=== PATIENT | male | born 1960 | race African-American/Black ===

== ENCOUNTER → 2016-11-11 | Outpatient (CLI) | payer OTHER ==
[~2016-11-11] MED LIST: ALDACTONE; ASPIRIN EC81 M1 PO; BAYER CHEWABLE81 MG PO; CARISOPRODOL 3350 MG PO; CELLCEPT 250 M250 MG PO; CELLCEPT200 MG/ML PO; CLORPACTIN WCS-92 GM IRRIG; DEPO-TESTO200 MG/1 M IM; DEX4 GLUCOSE1 EACH PO; FLEXERIL PO; FLOMAX PO; FLOMAX0.4 MG PO; GLUTOSE GEL 1515 G1 PO; IBUPROFEN 200200 M1 PO; KEFLEX500 MG PO; LANTUS100 UNIT/M SUBQ; LEVEMIR SUBQ; METOCLOPRAMIDE; NORVASC5 MG PO; NOVOLOG100 UNIT/1; NOVOLOG100 UNIT/1 SUBQ; NOVOLOG100 UNIT/M SUBQ; PROGRAF1 MG PO; PROTONIX PO; PROTONIX40 M1 PO; PROTONIX40 MG PO; REGLAN 5 MG TAB5 MG PO; TESTOSTERO200 MG/11; ZANTAC 150MG T150 MG PO; ZOFRAN ODT4 MG PO; [UNRECOGNIZED DRUG - OTHER] PO
--- NOTE | ~2016-11-11 | S ---
[facility] [place] [address] SURGICAL PATH RPT PROCEDURE Name: JOHN PAUL ODELL Room #: REG [facility] Norbert.#: [id number] Admission: 11/11/16 Date of : 64 Discharge: Report #: [id number] Path Case #: [id number] PATHOLOGY REPORT COLLECTION DATE: 11/11/2016 RECEIVED DATE: 11/12/2016 SUBMITTING PHYS: Dr. Baldev Feliciano OTHER PHYS: Dr. Avery Rodriguez SPECIMEN(S) RECEIVED: Kemars distal esophagus * * * * * * * * * * * * FINAL DIAGNOSIS: Glandular mucosa "biopsy distal esophagus": - Glandular mucosa with acute and chronic inflammation and goblet cell metaplasia consistent with Esquivel's metaplastic change. - There is no evidence of dysplasia or malignancy. (SHA:csd; d/t: 11/13/2016) PATHOLOGIST: Kei Hubbard M.D. REPORT ELECTRONICALLY SIGNED BY: Kei Hubbard M.D. DATE/TIME: 11/13/2016 10:55 * * * * * * * * * * * * GROSS PATHOLOGY: Received in formalin labeled "John Paul Odell and bx distal esophagus," are 2 segments of paul soft tissue measuring 0.6 x 0.2 x 0.2 cm in aggregate dimensions and measuring 0.2 and 0.4 cm in maximum dimension. The specimen is submitted entirely in cassette A1. (TTL; 11/12/2016) CLINICAL HISTORY: GERD, history of Esquivel's INITIAL CPT CODE(S): A; 73756 Professional services performed by [facility] at [facility] [address] [place] [address] Technical services performed by [facility] at [address] [place] [phone] [facility] [address] [place] [address] SURGICAL PATH RPT PROCEDURE Name: JOHN PAUL ODELL JR Room #: REG RUBENS Kraft#: [id number] Admission: 11/11/16 Date of : 64 Discharge: Report #: [id number] Path Case #: [id number] [address] PHONE: [phone] DIRECTOR: Parker Ferrera M.D. * * * END OF REPORT * * *
--- NOTE | ~2016-11-11 | P ---
[facility] [place] [address] PROCEDURE REPORT Name: JEREMY ODELL Room #: REG RUBENS Kraft#: [id number] Admission: 11/11/16 Attend Phys: Baldev [place] Discharge: Date of : 64 Report #: [id number] THIS REPORT FOR: //name// CC: Baldev Wyattlas Michael DATE OF SERVICE: 11/11/2016 PROCEDURE PERFORMED: Upper endoscopy with biopsies. HISTORY OF PRESENT ILLNESS: The patient is a 56-year-old male with a history of gastroesophageal reflux, intermittent heartburn symptoms despite taking Protonix on a daily basis. He has undergone a previous upper endoscopy by myself in 2013, small segment of Esquivel's was noted. LESLIE test at that time was negative for H. pylori. He denies any dysphagia. He has tried Protonix b.i.d. without much improvement and he states most of his symptoms are heartburn at night, is currently taking Protonix in the morning, he also has been taking Reglan in the past without any benefit and he discontinued this medication. DESCRIPTION OF PROCEDURE: The risks and benefits of the procedure were explained to the patient, those risks including but not limited to bleeding, perforation, the risk of sedation. He understood these risks and gave informed consent. Sedation was given using propofol and ketamine per anesthesia. Next, using a standard Paicen upper endoscope, the scope was placed in the patient's mouth and advanced under direct vision through the esophagus, stomach and into the second portion of the duodenum. The upper and mid esophagus were normal in appearance. In the distal esophagus, a segment of Esquivel's was noted extending above the GE junction approximately 1 cm. Biopsies were obtained. No evidence of esophagitis or stricture. Upon entering the stomach, was a small to medium sized hiatal hernia was noted. There was a small amount of liquid within the stomach. Overall, the gastric mucosa was normal. The pylorus was normal and patent. The duodenal bulb, first and second portion were all normal. The scope was then withdrawn and the procedure terminated. The patient tolerated the procedure well. IMPRESSION: 1. Short segment Esquivel's esophagus. 2. Hiatal hernia. 3. Otherwise, normal upper endoscopy. RECOMMENDATIONS: 1. Await biopsy results. 2. Would recommend switching Protonix to afternoon or evening dose to see if this improves the symptoms at night. He has already tried b.i.d. PPI therapy. He has already been on Reglan as well and Zantac in the past. Options are more limited at this point, we will discuss further with the patient, could consider [address] [address] PROCEDURE REPORT Name: JEREMY ODELL JR Room #: REG RUBENS Kraft#: [id number] Admission: 11/11/16 Attend Phys: Baldev [place] Discharge: Date of : 64 Report #: [id number] switching to a different PPI, may consider gastric emptying time study as well. If this is delayed then may consider erythromycin trial. Thank you for allowing me to participate in his care. <ELECTRONICALLY SIGNED> By: Baldev Feliciano MD 11/13/16 1358 1113 1201 Baldev Feliciano MD /nt
== END | disposition home or self-care (01) ==
LOC: GI 09:34
DX: K22.70 Barrett's esophagus without dysplasia (principal); K44.9 Diaphragmatic hernia without obstruction or gangrene
CPT/HCPCS: 62110; 62900

== ENCOUNTER 2017-07-04 13:21 | Emergency (ER) | payer OTHER ==
[~2017-07-04] VITALS: Ht 162.6 cm; Wt 72.6 kg
[2017-07-04] MEDS ORDERED: PROTONIX40 M1 PO (14:34)
[2017-07-04 15:11] LABS: ABSOLUTE NEUTROPHILS 2.1 thou/uL (1.4-8.2); BASOPHILS 0.5 % (0.0-2.0); EOSINOPHILS 3.9 % (0.0-3.0); HEMATOCRIT 38.2 % (42.0-52.0); HEMOGLOBIN 13.1 gm/dL (14.0-18.0); LYMPHOCYTES 25.5 % (24.0-44.0); MCH 30.4 pg (26.0-34.0); MCHC 34.3 g/dL (28.0-37.0); MCV 88.7 fL (80.0-100.0); MONOCYTES 8.8 % (1.0-8.0); PLATELET COUNT 194 thou/uL (150-400); POLYS 61.3 % (36.0-66.0); RDW 13.7 % (10.5-14.5); WBC 3.4 thou/uL (4.0-11.0)
[2017-07-04 15:13] LABS: MANUAL DIFF NO
[2017-07-04 15:18] LABS: CALCIUM 9.5 mg/dL (8.5-10.1); CREATININE 1.1 mg/dL (0.7-1.3); POTASSIUM 3.5 mmol/L (3.5-5.1)
[2017-07-04 15:23] LABS: ALBUMIN 3.8 g/dL (3.4-5.0); TOTAL BILIRUBIN 0.4 mg/dL (<0.1-1.0); TOTAL PROTEIN 7.3 g/dL (6.4-8.2)
[2017-07-04 16:17] LABS: URINE BILIRUBIN NEGATIVE (Negative); URINE BLOOD NEGATIVE (Negative); URINE COLOR YELLOW; URINE GLUCOSE-RANDOM* 2+ (Negative); URINE KETONES TRACE (Negative); URINE NITRITE NEGATIVE (Negative); URINE PROTEIN (DIPSTICK) TRACE (Negative); URINE UROBILINOGEN 0.2 E.U./dl (0.2-1.0)
[2017-07-04] MEDS ORDERED: PHENERGAN 25 MG25 M1 PO (16:54)
== END 2017-07-04 17:38 | disposition home or self-care (01) ==
LOC: ER 13:21
PROVIDERS: Physician Assistant
DX: R11.2 Nausea with vomiting, unspecified (principal); R19.7 Diarrhea, unspecified; I11.0 Hypertensive heart disease with heart failure; E11.9 Type 2 diabetes mellitus without complications; Z79.4 Long term (current) use of insulin

== ENCOUNTER → 2019-04-24 | Outpatient (CLI) | payer OTHER ==
[~2019-04-24] MED LIST changes: +PHENERGAN 25 MG25 M1 PO
== END ==
LOC: HYPER 06:16
DX: E11.622 Type 2 diabetes mellitus with other skin ulcer (principal); L89.513 Pressure ulcer of right ankle, stage 3; L97.311 Non-pressure chronic ulcer of right ankle limited to breakdown of skin; S90.424A Blister (nonthermal), right lesser toe(s), initial encounter; E11.610 Type 2 diabetes mellitus with diabetic neuropathic arthropathy; M12.871 Other specific arthropathies, not elsewhere classified, right ankle and foot; R60.0 Localized edema; E78.5 Hyperlipidemia, unspecified; F32.9 Major depressive disorder, single episode, unspecified; K21.9 Gastro-esophageal reflux disease without esophagitis; Z87.891 Personal history of nicotine dependence; Z94.0 Kidney transplant status; X58.XXXA Exposure to other specified factors, initial encounter; Y93.89 Activity, other specified; Y92.89 Other specified places as the place of occurrence of the external cause; Y99.8 Other external cause status

== ENCOUNTER → 2019-05-08 | Outpatient (CLI) | payer OTHER ==
[~2019-05-08] MED LIST changes: +AUGMENTIN 875-1 EACH PO
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
[2019-05-08 10:59] LABS: HEMATOCRIT 38.5 % (42.0-52.0); MCH 29.7 pg (26.0-34.0); MCHC 33.7 g/dL (28.0-37.0); MCV 88.3 fL (80.0-100.0); RBC 4.36 mil/uL (4.50-6.00); RDW 13.9 % (10.5-14.5); WBC 3.9 thou/uL (4.0-11.0)
[2019-05-08 11:23] LABS: ALBUMIN 3.6 g/dL (3.4-5.0); CALCIUM 9.6 mg/dL (8.5-10.1); CREATININE 0.9 mg/dL (0.7-1.3); TOTAL BILIRUBIN 0.6 mg/dL (<0.1-1.0); TOTAL PROTEIN 7.5 g/dL (6.4-8.2)
[2019-05-08 15:29] VITALS: BP 150/69
--- NOTE | 2019-05-08 15:46 | NUR ---
IN FOR CLINIC VISIT WITH DR. HAILEY DURON FOR RT FOOT DIABETIC WOUNDS. ADMISSION HISTORY AND ASSESSMENT COMPLETED. MEDICATIONS RECONCILED. DR. DURON VISITED. PATIENT CAME TO US FROM WOUND CLINIC. WOUNDS TO RT FOOT HEALING. NEW WOUND DISTAL TO RT LITTLE TOE SMALL/PINK. PATIENT DOING OWN DRESSING CHANGES DAILY AT HOME. LABS DRAWN AND FAXED TO DR. AQUINO AND DR. DURON. NEW ORDERS WRITTEN. PATIENT IS TO RETURN TO CLINIC NEXT WEDNESDAY TO F/U WITH DR. DURON AFTER HAVING MRI RT FOOT DONE THIS WEEK. ALSO PLACED CALL TO DR. AQUINO'S OFFICE TO GET ANT. DOPPLER RESULTS AND WOUND CULTURE RESULTS. FAXED ORDER TO SCHEDULING WHOM WILL CALL PATIENT TO SCHEDULE MRI. PLACED ORDER FOR PER DIEM REGISTERED NURSE TO SEE PT NEXT WEDNESDAY FOR DIABETIC TEACHING. DISMISSED IN STABLE CONDITION.
== END ==
LOC: OPONC 00:27
PROVIDERS: Specialist
DX: E11.622 Type 2 diabetes mellitus with other skin ulcer (principal); L89.513 Pressure ulcer of right ankle, stage 3; L97.311 Non-pressure chronic ulcer of right ankle limited to breakdown of skin; S90.821D Blister (nonthermal), right foot, subsequent encounter; E11.610 Type 2 diabetes mellitus with diabetic neuropathic arthropathy; E78.5 Hyperlipidemia, unspecified; M12.871 Other specific arthropathies, not elsewhere classified, right ankle and foot; R60.0 Localized edema; F32.9 Major depressive disorder, single episode, unspecified; Z87.891 Personal history of nicotine dependence; Z94.0 Kidney transplant status; X58.XXXD Exposure to other specified factors, subsequent encounter
CPT/HCPCS: 91024

== ENCOUNTER → 2019-05-08 | Outpatient (CLI) | payer OTHER | LOC: HYPER 06:29 | DX: E11.622 Type 2 diabetes mellitus with other skin ulcer (principal); L97.311 Non-pressure chronic ulcer of right ankle limited to breakdown of skin; L89.513 Pressure ulcer of right ankle, stage 3; S90.821D Blister (nonthermal), right foot, subsequent encounter; E11.610 Type 2 diabetes mellitus with diabetic neuropathic arthropathy; M12.871 Other specific arthropathies, not elsewhere classified, right ankle and foot; E78.5 Hyperlipidemia, unspecified; R60.0 Localized edema; F32.9 Major depressive disorder, single episode, unspecified; Z87.891 Personal history of nicotine dependence; Z94.0 Kidney transplant status; X58.XXXD Exposure to other specified factors, subsequent encounter ==

== ENCOUNTER → 2019-05-25 | Outpatient (CLI) | payer OTHER | LOC: NUC 09:30 | DX: S91.301D Unspecified open wound, right foot, subsequent encounter (principal); X58.XXXD Exposure to other specified factors, subsequent encounter ==

== ENCOUNTER → 2019-05-29 | Outpatient (CLI) | payer OTHER ==
[2019-05-29 12:07] VITALS: BP 179/77
--- NOTE | 2019-05-29 14:34 | NUR ---
HERE EARLIER TODAY FOR VISIT WITH DR. DURON. FIRST SAW DR. WOOD IN THE WOUND CARE CLINIC. PT STATES R FOOT WAS EVALUATED AND REDRESSED. UNABLE TO OBSERVE FOOT SINCE DRESSING IN PLACE AND SOCK ON. NO LABS ORDERED FOR TODAY. DR. DURON DID SEE PT AND REVIEWED ALL REPORTS FROM RECENT IMAGING STUDIES WITH HIM. HE ALSO SPOKE WITH DR. WOOD. PT WAS ENCOURAGED TO CONTINUE OFF-LOADING MUCH POSSIBLE. CALL PLACED AT THIS TIME TO [facility] TO REQUEST A WALKER FOR PT IN ADDITION TO HIS KNEE WALKER TO GIVE HIM MORE MOBILITY CHOICES. WILL FAX ORDER OVER AT THIS TIME. ORDER RECEIVED FOR PT TO RETURN TO SEE DR. DURON AGAIN IN 2 WEEKS POST HIS VISIT IN THE WOUND CARE CLINIC. DISMISSED IN STABLE CONDITION. USING KNEE WALKER TODAY.
--- NOTE | 2019-06-05 14:30 | HC ---
[facility] [place] [address] CONSULTATION Name: JEREMY ODELL [facility] [id number] Admission: 05/29/19 Attend Phys: Mario Diaz MD Discharge: Date of : 64 Report #: [id number] THIS REPORT FOR: //name// CC: Bob Diaz DATE OF SERVICE: 05/29/2019 FOLLOWUP CONSULTATION SUBJECTIVE: Outpatient clinic followup, Charcot foot wound. The patient has longstanding diabetes, immunosuppressed on CellCept, tacrolimus for kidney transplant. He has had a nonhealing wound to the lateral aspect of his right foot with longstanding Charcot changes. There are wounds over the lateral malleolus and the fifth metatarsal. Cultures had revealed methicillin-susceptible Staph aureus and group B Streptococcus along with mixed filipe. He has been on Augmentin without significant side effect. I was concerned about the possibility of underlying osteomyelitis. MRI scan was ordered, but insurance refused to pay for it, so I went ahead with a bone scan. Bone scan was performed on 05/25/2019, which showed increased blood flow throughout his foot and ankle. There was no localizing increased uptake to suggest osteomyelitis. X-ray of the foot showed diffuse soft tissue swelling with no evidence of active lytic bone lesion. He had chronic Charcot joint changes. Also had ultrasound of the right lower extremity arterial system. This was on 05/22/2019 showed common femoral artery, profunda femoris artery, superficial femoral artery and popliteal arteries were patent. There was antegrade flow throughout the anterior tibial artery and dorsalis pedis artery. Proximal portions of the posterior tibial artery was antegrade flow; however, the distal portion was retrograde flow at the ankle. This was concerning for more severe narrowing of the mid or distal posterior tibial artery. The patient has stayed off his foot as much as possible. He is having troubles ambulating around the house. He does have a knee walker, but he does not have a 4-point walker as for the spaces. Foot wound has improved with decreased size. There is minimal drainage. He was seen by the [facility] this morning and was redressed. He is having no further side effects from his medications. IMPRESSION: Diabetic neuropathy wounds to his right foot with poor glucose control. He does have evidence of peripheral vascular disease in the small vessels. There is no evidence to suggest osteomyelitis from my imaging studies performed so far. PLAN: To continue his current oral antibiotic therapy. Increase offloading and [address] [address] CONSULTATION Name: JEREMY ODELL Room #: REG RUBENS Toussaint.#: [id number] Admission: 05/29/19 Attend Phys: Mario Diaz MD Discharge: Date of : 64 Report #: [id number] continuing wound care. He will continue to work on diabetic management. We will reevaluate in 2 weeks. <ELECTRONICALLY SIGNED> By: Bob Gold MD 06/05/19 5902 1301 51 Bob Gold MD /tiara
== END ==
LOC: HYPER
DX: E11.622 Type 2 diabetes mellitus with other skin ulcer (principal); L89.513 Pressure ulcer of right ankle, stage 3; L97.311 Non-pressure chronic ulcer of right ankle limited to breakdown of skin; S90.821D Blister (nonthermal), right foot, subsequent encounter; L84 Corns and callosities; E11.610 Type 2 diabetes mellitus with diabetic neuropathic arthropathy; E78.5 Hyperlipidemia, unspecified; R60.0 Localized edema; M19.90 Unspecified osteoarthritis, unspecified site; F32.9 Major depressive disorder, single episode, unspecified; Z87.891 Personal history of nicotine dependence; Z94.0 Kidney transplant status; X58.XXXD Exposure to other specified factors, subsequent encounter
CPT/HCPCS: 91016

== ENCOUNTER → 2019-06-12 | Outpatient (CLI) | payer OTHER ==
--- NOTE | ~2019-06-12 | HC ---
[facility] [place] [address] CONSULTATION Name: JEREMY ODELL Room #: REG Louise Norbert.#: [id number] Admission: 06/12/19 Attend Phys: POLLY Smith Discharge: Date of : 64 Report #: [id number] THIS REPORT FOR: //name// CC: Bob Akers INFECTIOUS DISEASE OUTPATIENT FOLLOWUP HISTORY OF PRESENT ILLNESS: The patient returns in followup of his Charcot foot wound infection. Longstanding diabetes, renal transplantation on 2-drug immunosuppression, CellCept, tacrolimus. Nonhealing wound, lateral aspect of his right foot, both over the fifth metatarsal as well as the lateral malleolus. Longstanding Charcot foot. Cultures of the wound revealed methicillin-susceptible Staph aureus and group B Streptococcus along with mixed filipe. He remains on Augmentin without side effect. He has been offloading for the last several weeks. He is utilizing a knee scooter and a walker. Bone scan showed increased blood flow throughout the foot and ankle with no localizing changes to suggest osteomyelitis. X-ray of the foot showed no definite evidence of active lytic bone lesions. His vasculature was patent for the most part with reasonable flow to his foot. There was some concern over the mid to distal posterior tibial artery. His wound continues to show improvement. I was able to review the pictures obtained today at wound clear clinic. Significant improvement from 2 weeks ago. No new laboratory studies. IMPRESSION: 1. Diabetic neuropathy with Charcot foot and peripheral vascular disease. The combination of antibiotic therapy with Augmentin and offloading has resulted in significant improvement. He still needs better diabetic control. His blood glucose levels remain over 200 fasting. 2. Immunosuppression due to renal transplantation. 3. Diabetes. 4. Peripheral vascular disease. RECOMMENDATIONS: We will continue his current antibiotic program, offloading, diabetic management, and reevaluate in 2 weeks. By: 1357 2326 Bob Gold MD /nt
[2019-06-12 11:57] VITALS: BP 129/63
--- NOTE | 2019-06-12 14:27 | NUR ---
IN FOR CLINIC VISIT WITH DR. HAILEY DURON FOR RIGHT FOOT WOUNDS. DR. DURON VISITED. PLAN IS TO FOLLOWUP AGAIN IN 2 WEEKS. ALSO HAS AN APPT WITH CHARGE MASTER COORDINATOR ON JUN 27, AT 0900. DID NOT SEE RT FOOT WOUNDS PATIENT CAME TO CLINIC FROM WOUND CLINIC AND FOOT WAS DRESSED. PATIENT IS USING KNEE WALKER WHEN OUT, AND A REGULAR WALKER AT HOME. DR. DURON INSTRUCTED PATIENT TO USE HEEL TOUCH ON RT FOOT WHEN USING REGULAR WALKER AT HOME. TOOK PICTURE OF WOUNDS AND SHOWED THIS TO DR. DURON. WOUNDS ARE SMALLER AND HEALING. PLAN IS TO CONTINUE ORAL AUGMENTIN. DENIED PAIN, N/V, FEVER/CHILLS, DIARRHEA. DISMISSED IN STABLE CONDITION.
== END ==
LOC: HYPER 07:09
DX: E11.622 Type 2 diabetes mellitus with other skin ulcer (principal); L89.513 Pressure ulcer of right ankle, stage 3; L97.311 Non-pressure chronic ulcer of right ankle limited to breakdown of skin; L84 Corns and callosities; E11.610 Type 2 diabetes mellitus with diabetic neuropathic arthropathy; E78.5 Hyperlipidemia, unspecified; R60.0 Localized edema; F32.9 Major depressive disorder, single episode, unspecified; Z87.891 Personal history of nicotine dependence; Z94.0 Kidney transplant status
CPT/HCPCS: 91017

== ENCOUNTER → 2019-07-10 | Outpatient (CLI) | payer OTHER | LOC: HYPER 07-03 06:52 | DX: E11.622 Type 2 diabetes mellitus with other skin ulcer (principal); L89.513 Pressure ulcer of right ankle, stage 3; L97.311 Non-pressure chronic ulcer of right ankle limited to breakdown of skin; S90.822D Blister (nonthermal), left foot, subsequent encounter; E11.610 Type 2 diabetes mellitus with diabetic neuropathic arthropathy; E78.5 Hyperlipidemia, unspecified; L84 Corns and callosities; M12.871 Other specific arthropathies, not elsewhere classified, right ankle and foot; R60.0 Localized edema; F32.9 Major depressive disorder, single episode, unspecified; Z87.891 Personal history of nicotine dependence; Z94.0 Kidney transplant status; X58.XXXD Exposure to other specified factors, subsequent encounter ==

== ENCOUNTER → 2019-07-24 | Outpatient (CLI) | payer OTHER | LOC: HYPER 07:38 | DX: E11.621 Type 2 diabetes mellitus with foot ulcer (principal); L97.522 Non-pressure chronic ulcer of other part of left foot with fat layer exposed; E11.610 Type 2 diabetes mellitus with diabetic neuropathic arthropathy; M12.871 Other specific arthropathies, not elsewhere classified, right ankle and foot; L84 Corns and callosities; M19.90 Unspecified osteoarthritis, unspecified site; E78.5 Hyperlipidemia, unspecified; R60.0 Localized edema; F32.9 Major depressive disorder, single episode, unspecified; Z94.0 Kidney transplant status; Z87.891 Personal history of nicotine dependence ==

== ENCOUNTER → 2019-08-07 | Outpatient (CLI) | payer OTHER | LOC: HYPER 08:30 | DX: E11.621 Type 2 diabetes mellitus with foot ulcer (principal); L97.511 Non-pressure chronic ulcer of other part of right foot limited to breakdown of skin; E11.622 Type 2 diabetes mellitus with other skin ulcer; L97.311 Non-pressure chronic ulcer of right ankle limited to breakdown of skin; L84 Corns and callosities; E11.610 Type 2 diabetes mellitus with diabetic neuropathic arthropathy; M12.871 Other specific arthropathies, not elsewhere classified, right ankle and foot; E78.5 Hyperlipidemia, unspecified; Z87.891 Personal history of nicotine dependence; Z79.82 Long term (current) use of aspirin; Z94.0 Kidney transplant status ==

== ENCOUNTER → 2020-04-24 | Outpatient (CLI) | payer OTHER ==
[~2020-04-24] VITALS: Ht 165.1 cm; Wt 74.8 kg
[~2020-04-24] MED LIST changes: +CELLCEPT500 MG PO; +HUMALOG100 UNIT/1 SUBQ; +LEVEMIR FL100 UNIT/2 SUBQ; +PROGRAF 1 MG1 MG PO; +TRULICITY0.75 MG/0. SUBQ
--- NOTE | ~2020-04-24 | P ---
[facility] [place] [address] PROCEDURE REPORT Name: JEREMY ODELL Room #: REG [facility] Swapnil#: [id number] Admission: 04/24/20 Attend Phys: Baldev [place] Discharge: Date of : 64 Report #: [id number] THIS REPORT FOR: cc: Avery Rodriguez MD [facility] Avery Tomas MD [facility] Baldev Dalton MD ~ CC: Baldev Rodriguez MD DATE OF SERVICE: 04/24/2020 PROCEDURE PERFORMED: Upper endoscopy with biopsies. HISTORY OF PRESENT ILLNESS: The patient is a 59-year-old male with a history of gastroesophageal reflux disease, previously on Protonix with good control, was switched to Zantac at one time after renal transplant; however, was having worse symptoms of heartburn. He is now taking Protonix b.i.d. He is much improved; however, he does have breakthrough heartburn symptoms at times. He denies any dysphagia. He also has a history of Esquivel's esophagus, no dysplasia. Plan is for EGD and colonoscopy today. DESCRIPTION OF PROCEDURE: The risks and benefits of the procedure were explained to the patient; those risks including but not limited to bleeding, perforation and the risk of sedation. He understood these risks and gave informed consent. Sedation was given using propofol per anesthesia. Next, using a standard Olympus upper endoscope, the scope was placed in the patient's mouth and advanced under direct vision through the esophagus, stomach and into the second portion of the duodenum. The larynx was normal in appearance. The upper and mid esophagus was normal. In the distal esophagus, a small short segment of Esquivel's was noted approximately 2 cm. Biopsies were obtained. No evidence of esophagitis. No stricture was noted. Upon entering the stomach, a small hiatal hernia was noted. Overall, the gastric mucosa was normal. The pylorus was normal and patent. The duodenal bulb, first and second portion were all normal. The scope was then withdrawn and the procedure terminated. The patient tolerated the procedure well. IMPRESSION: 1. Short segment Esquivel's. 2. Small hiatal hernia. 3. Otherwise, normal upper endoscopy. RECOMMENDATIONS: 1. Await biopsy results. 2. Continue b.i.d. PPI therapy. [address] [address] PROCEDURE REPORT Name: JEREMY ODELL Room #: REG Louise Kraft#: [id number] Admission: 04/24/20 Attend Phys: Baldev [place] Discharge: Date of : 64 Report #: [id number] Thank you for allowing me to participate in his care. By: 1108 1349 Baldev Feliciano MD /nt
--- NOTE | ~2020-04-24 | P ---
[facility] [place] [address] PROCEDURE REPORT Name: JEREMY ODELL [facility] [id number] Admission: 04/24/20 Attend Phys: Baldev [place] Discharge: Date of : 64 Report #: [id number] THIS REPORT FOR: cc: Avery Rodriguez MD, FAAFP, FACEP, Douglas MD [facility] Baldev Dalton MD ~ CC: Baldev Rodriguez DATE OF SERVICE: 04/24/2020 PROCEDURE PERFORMED: Colonoscopy. HISTORY OF PRESENT ILLNESS: The patient is a 59-year-old male with a history of colon polyps, last colonoscopy 02/10/2014. No family history of colon cancer. DESCRIPTION OF PROCEDURE: The risks and benefits of the procedure were explained to the patient, those risks including but not limited to bleeding, perforation and the risk of sedation. He understood these risks and gave informed consent. Sedation was given using propofol per anesthesia. Next, a digital rectal exam was initially performed, which was normal. Next, using a standard Olympus colonoscope, the scope was placed in the patient's anus and advanced under direct vision to the cecum. The overall prep was good. The cecum and ileocecal valve were normal in appearance. Ascending, transverse, descending and sigmoid colon were all normal. The rectal mucosa was normal. On retroflexion, small nonbleeding internal hemorrhoids were noted, otherwise normal colonoscopy. The scope was then withdrawn and the procedure terminated. The patient tolerated the procedure well. IMPRESSION: 1. Small internal hemorrhoids. 2. Otherwise, normal colonoscopy. RECOMMENDATIONS: Repeat colonoscopy in 5 years if the patient has a family history of colon cancer; 10 years if no family history. Thank you for allowing me to participate in his care. By: 1110 1355 Baldev Feliciano MD /nt
--- NOTE | 2020-04-25 17:07 | PATH ---
[facility] [address] [place] [address] PATHOLOGY RPT PROCEDURE Name: JOHN PAUL ODELL Room #: REG ABIGAILLouise Swapnil#: [id number] Admission: 04/24/20 Date of : 64 Discharge: Report #: [id number] Path Case #: [id number] [facility] Accession Number: [id number] . 01 Material submitted: . esophagus - BIOPSY OF DISTAL ESOPHAGUS R/O DYSPLASIA. Modifiers: distal . 01 Clinical history: . History of Esquivel's, R/O dysplasia . 02 Diagnosis: Gastroesophageal mucosa, distal esophagus, endoscopic biopsy: - Focal specialized columnar epithelium (gastric cardia-type mucosa) with intestinal metaplasia, consistent with the provided history of Esquivel's mucosa. - Moderate chronic inflammation. - Focal squamous mucosa showing active esophagitis. - Negative for dysplasia. . (IUV:mml; 04/25/2020) QLM 04/25/2020 1606 Local . 02 Electronically signed: . Tamera Bains MD, Pathologist NPI- [id number] . 01 Gross description: . The specimen is received in formalin, labeled "John Paul Odell, biopsy of distal esophagus, R/O dysplasia". Received are four segments of pale paul soft tissue ranging in size from 0.2 to 0.3 cm in maximum dimensions. The specimen is submitted entirely in cassette A1. (CAA; 04/24/2020) QA/QA 04/24/2020 1550 Local . 02 Pathologist provided ICD-10: K22.70, K20.9 . 02 CPT . 722239 Specimen Comment: A courtesy copy of this report has been sent to [phone], [phone] Specimen Comment: [phone] Specimen Comment: Report sent to / DR DOOLEY Performed at: [address] [id number] MD Eliu Denise MD Phone: [phone] [facility] [place] [address] PATHOLOGY RPT PROCEDURE Name: JOHN PAUL ODELL Room #: REG CLLouise Kraft#: [id number] Admission: 04/24/20 Date of : 64 Discharge: Report #: [id number] Path Case #: [id number] Performed at: 02 [facility] [employer] [place], [place] [id number] MD Tamera Bains MD Phone: [phone]
== END | disposition home or self-care (01) ==
LOC: GI 09:07
PROVIDERS: ATTEND Specialist
DX: Z12.11 Encounter for screening for malignant neoplasm of colon (principal); Z86.010 Personal history of colon polyps; K64.8 Other hemorrhoids; K22.70 Barrett's esophagus without dysplasia; K20.9 Esophagitis, unspecified; K44.9 Diaphragmatic hernia without obstruction or gangrene; K21.9 Gastro-esophageal reflux disease without esophagitis; R12 Heartburn; I10 Essential (primary) hypertension; E11.9 Type 2 diabetes mellitus without complications; G62.9 Polyneuropathy, unspecified; E78.5 Hyperlipidemia, unspecified; M19.90 Unspecified osteoarthritis, unspecified site; Z90.49 Acquired absence of other specified parts of digestive tract; Z98.890 Other specified postprocedural states; Z11.59 Encounter for screening for other viral diseases; Z94.0 Kidney transplant status; Z79.899 Other long term (current) drug therapy; Z79.4 Long term (current) use of insulin
CPT/HCPCS: 62110; 62900

== ENCOUNTER → 2020-09-04 | Outpatient (CLI) | payer OTHER | LOC: SJCVCIMAG 10:31 | PROVIDERS: ATTEND Emergency Medicine | DX: I70.201 Unspecified atherosclerosis of native arteries of extremities, right leg (principal); L97.319 Non-pressure chronic ulcer of right ankle with unspecified severity ==

== ENCOUNTER → 2020-09-04 | Outpatient (CLI) | payer OTHER | LOC: HYPER 08:40 | PROVIDERS: ATTEND Emergency Medicine | DX: E11.622 Type 2 diabetes mellitus with other skin ulcer (principal); L89.513 Pressure ulcer of right ankle, stage 3; L97.312 Non-pressure chronic ulcer of right ankle with fat layer exposed; E11.621 Type 2 diabetes mellitus with foot ulcer; L89.893 Pressure ulcer of other site, stage 3; L97.512 Non-pressure chronic ulcer of other part of right foot with fat layer exposed; R60.0 Localized edema; E11.610 Type 2 diabetes mellitus with diabetic neuropathic arthropathy; E78.5 Hyperlipidemia, unspecified; K21.9 Gastro-esophageal reflux disease without esophagitis; M12.871 Other specific arthropathies, not elsewhere classified, right ankle and foot; F32.9 Major depressive disorder, single episode, unspecified; Z94.0 Kidney transplant status; Z87.891 Personal history of nicotine dependence ==

== ENCOUNTER → 2020-09-09 | Outpatient (CLI) | payer OTHER ==
[~2020-09-09] VITALS: Ht 165.1 cm; Wt 74.8 kg
[~2020-09-09] MED LIST changes: +PROGRAF0.5 MG PO
[2020-09-09 07:17] VITALS: BP 147/55
== END | disposition home or self-care (01) ==
LOC: CATH 06:47
PROVIDERS: ATTEND Nuclear Medicine Nuclear Cardiology
DX: I70.238 Atherosclerosis of native arteries of right leg with ulceration of other part of lower leg (principal); L97.919 Non-pressure chronic ulcer of unspecified part of right lower leg with unspecified severity; I10 Essential (primary) hypertension; I70.1 Atherosclerosis of renal artery; E11.40 Type 2 diabetes mellitus with diabetic neuropathy, unspecified; M19.90 Unspecified osteoarthritis, unspecified site; K21.9 Gastro-esophageal reflux disease without esophagitis; I42.9 Cardiomyopathy, unspecified; Z98.890 Other specified postprocedural states; Z79.899 Other long term (current) drug therapy; Z94.0 Kidney transplant status; Z79.4 Long term (current) use of insulin; Z87.891 Personal history of nicotine dependence; Z90.49 Acquired absence of other specified parts of digestive tract

== ENCOUNTER → 2020-09-23 | Outpatient (CLI) | payer OTHER | LOC: HYPER 13:13 | PROVIDERS: ATTEND Emergency Medicine | DX: E11.622 Type 2 diabetes mellitus with other skin ulcer (principal); L89.513 Pressure ulcer of right ankle, stage 3; L97.311 Non-pressure chronic ulcer of right ankle limited to breakdown of skin; E11.621 Type 2 diabetes mellitus with foot ulcer; L89.890 Pressure ulcer of other site, unstageable; L97.511 Non-pressure chronic ulcer of other part of right foot limited to breakdown of skin; R60.0 Localized edema; E11.610 Type 2 diabetes mellitus with diabetic neuropathic arthropathy; E78.5 Hyperlipidemia, unspecified; K21.9 Gastro-esophageal reflux disease without esophagitis; M12.871 Other specific arthropathies, not elsewhere classified, right ankle and foot; F32.9 Major depressive disorder, single episode, unspecified; Z94.0 Kidney transplant status; Z87.891 Personal history of nicotine dependence ==

== ENCOUNTER → 2020-10-14 | Outpatient (CLI) | payer OTHER | LOC: LAB 09:41 | PROVIDERS: ATTEND Emergency Medicine | DX: U07.1 COVID-19 (principal) ==

== ENCOUNTER 2020-11-23 14:09 | Inpatient (IN) | payer OTHER ==
[~2020-11-23] VITALS: Ht 165.1 cm; Wt 73.3 kg
[2020-11-23 14:13] VITALS: BP 167/72
[2020-11-23] MEDS ORDERED: CLOPIDOGREL75 MG PO (14:57)
[2020-11-23] MEDS ORDERED: PRASUGREL HCL10 MG PO (14:57)
[2020-11-23 15:07] LABS: ABSOLUTE NEUTROPHILS 8.9 thou/uL (1.4-8.2); BASOPHILS 0.1 % (0.0-2.0); EOSINOPHILS 0.1 % (0.0-3.0); HEMATOCRIT 33.4 % (42.0-52.0); HEMOGLOBIN 11.3 gm/dL (14.0-18.0); LYMPHOCYTES 9.3 % (24.0-44.0); MCH 29.9 pg (26.0-34.0); MCHC 33.7 g/dL (28.0-37.0); MCV 88.9 fL (80.0-100.0); MONOCYTES 6.1 % (1.0-8.0); PLATELET COUNT 255 thou/uL (150-400); POLYS 84.4 % (36.0-66.0); RBC 3.76 mil/uL (4.50-6.00); RDW 14.3 % (10.5-14.5); WBC 10.6 thou/uL (4.0-11.0)
[2020-11-23 15:22] LABS: MAGNESIUM 1.5 mg/dL (1.8-2.4); TROPONIN-I <0.06 ng/mL (<0.06)
[2020-11-23 15:27] LABS: CALCIUM 9.5 mg/dL (8.5-10.1); CREATININE 1.3 mg/dL (0.7-1.3); POTASSIUM 4.2 mmol/L (3.5-5.1)
[2020-11-23 15:32] LABS: ALBUMIN 3.1 g/dL (3.4-5.0); TOTAL BILIRUBIN 0.8 mg/dL (0.2-1.0); TOTAL PROTEIN 7.6 g/dL (6.4-8.2)
--- NOTE | 2020-11-23 23:58 | NUR ---
SPOKE WITH PROVIDER RE PT REQUEST FOR BREATHING TREATMENT, ORDER PLACED
[2020-11-24 04:17] VITALS: BP 132/63
[2020-11-24 04:42] VITALS: BP 136/72
[2020-11-24 05:35] VITALS: BP 164/54
--- NOTE | 2020-11-24 06:48 | NUR ---
PT ARRIVED TO UNIT AT 0530 VIA ER ON CART. PT IS A/0X4 AND IS X1 ASSIST. PT USES CANE AT HOME AND RIGHT LOWER LEG IS SWOLLEN WITH SOFT TISSUE WOUNDS TO RIGHT ANKLE. ADMISSION COMPLETED, CARE PLAN IN PLACE, AND CONSULTS TO RENAL HAVE BEEN CALLED. PT WAS POSITIVE FOR COVID 10/13, SWABBED AGAIN THE IN ER AND PCR POSITIVE STILL. FLU SWAB WAS POSITIVE FOR BOTH A/B. POC WITH IVF AND ANTIBIOTICS.
[2020-11-24 07:35] VITALS: BP 139/65
[2020-11-24 10:14] LABS: URINE BLOOD NEGATIVE (Negative); URINE CLARITY CLEAR; URINE COLOR YELLOW; URINE GLUCOSE-RANDOM* TRACE (Negative); URINE KETONES 1+ (Negative); URINE LEUKOCYTES-REFLEX NEGATIVE (Negative); URINE NITRITE-REFLEX NEGATIVE (Negative); URINE PROTEIN (DIPSTICK) 1+ (Negative); URINE SPECIFIC GRAVITY 1.025 (1.005-1.035)
[2020-11-24 10:16] LABS: ICTOTEST (BILI CONFIRMATORY) Negative (Negative); URINE BILIRUBIN NEGATIVE (Negative)
[2020-11-24 10:53] LABS: CASTS None Seen /LPF (None Seen); MUCUS 0-3 Light strn/LPF (None Seen); SQUAMOUS 0-3 Few /LPF (0-3)
[2020-11-24 10:54] LABS: BACTERIA-REFLEX 1-9 Few /HPF (None Seen); CRYSTALS None Seen /LPF (None Seen); URINE RBC None Seen /HPF (0-2); URINE WBC-REFLEX 0-5 Rare /HPF (0-5)
[2020-11-24 16:25] VITALS: BP 114/53
--- NOTE | 2020-11-24 17:27 | NUR ---
PATIENT HAS RESTED IN ROOM THE THROUGH THE DAY. HE DID HAVE A FEVER AGAIN TODAY AND PRN TYLENOL ADMINISTERD. IT WAS EFFECTIVE TO FEVER OF 101.8. HE IS WOUNDS TO RIGHT INNER AND OUTER MALEOLUS NOTED. NO DRAINAAGE. JUST SWELLING.
[2020-11-24 19:38] VITALS: BP 147/67
--- NOTE | 2020-11-25 03:44 | NUR ---
CARE ASSUMED 1900. PT ALERT AND ORIENTED 4. REPORTS HEADACHE, AND WAS NOTED TO HAVE A FEVER OF 102. TYLENOL X 1 GIVEN. FEVER RESOLVED. SR, ST ON THE MONITOR. DENIES CHEST PAIN. C/O NAUSEA , ALLEVIATED BY ZOFRAN. NO OTHER DISTRESS REPORTED. WILL CONTINUE WITH POC.
[2020-11-25 04:09] VITALS: BP 156/76
--- NOTE | 2020-11-25 07:43 | EKG ---
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: JCHAINIMA : 1960 Requested By: Dustin Kearney Order Number: [id number] MD: Robbin Wadsworth Measurements Intervals [place] Rate: 125 P: 70 TN: 119 QRS: 79 QRSD: 91 T: 45 QT: 311 QTc: 449 Interpretive Statements Sinus tachycardia Ventricular premature complex Aberrant complex Probable left atrial enlargement Probable left ventricular hypertrophy Compared to ECG 07/06/2014 21:24:43 Ventricular premature complex(es) now present Aberrant conduction of supraventricular beat(s) now present Sinus rhythm no longer present Electronically Signed On 11-25-2020 7:42:56 UNDERGRADUATE INTERN by Robbin Wadsworth [email or web address] <ELECTRONICALLY SIGNED> By: Robbin Wadsworth MD, FACC 11/25/20 0742 1429 1429 Robbin Wadsworth MD, [facility] /EPI
--- NOTE | 2020-11-25 07:44 | HC ---
[facility] [place] [address] CONSULTATION Name: JEREMY ODELL Room #: 354-P [facility] IN .R.#: [id number] Admission: 11/23/20 Attend Phys: Laila Batista MD Discharge: Date of : 64 Report #: [id number] THIS REPORT FOR: cc: Avery Rodriguez MD [facility] Avery Rodriguez MD [facility] Cyrus Heard MD ~ DATE OF SERVICE: 11/24/2020 INFECTIOUS DISEASE CONSULTATION ATTENDING PHYSICIAN: Dr. Laila Batista REASON FOR EVALUATION: Influenza complicated by streptococcal septicemia. HISTORY OF PRESENT ILLNESS: Chart reviewed, patient examined. This is a 60-year-old with extensive medical history, has diabetes mellitus, previously complicated by end-stage renal disease, on dialysis. He had received renal transplant in 2011. He has been on combination immunosuppressive therapy since that time generally without complication, who actually had experienced a positive COVID testing about a month ago. He presented with anterior type chest discomfort and pressure. He was evaluated and found to have a positive influenza antigen tests for both A and B. The patient's chest x-ray is without acute abnormalities. Lactic acid is 1.4. ProBNP of 559. Rapid Strep was negative. COVID antigen was negative, although the PCR was positive. Now blood cultures 2 out 2 with growth of Streptococcus species. He was noted to be febrile on admission to 103.3, repeat this morning is now afebrile. He denies significant chest discomfort at this point. He is maintained on room air. He was empirically started on combination therapy with cefazolin and oseltamivir. ALLERGIES: None known. MEDICATIONS: Include prasugrel, amlodipine, aspirin, cefazolin, albuterol, tacrolimus, mycophenolate, pantoprazole. PAST MEDICAL HISTORY: As described above, history of diabetes mellitus, end-stage renal disease, now renal transplant 2012 situated in the right lower quadrant, hypertension, peripheral neuropathy, has had cardiomyopathy, Charcot's arthropathy involving the distal lower extremity. SOCIAL HISTORY: Former smoker. No ethanol. No illicit drug use. FAMILY HISTORY: Noncontributory. REVIEW OF SYSTEMS: Otherwise, unremarkable 10-point review of systems. [facility] [address] [place] [address] CONSULTATION Name: JEREMY ODELL Room #: 354-P [facility] IN [facility]#: [id number] Admission: 11/23/20 Attend Phys: Laila Batista MD Discharge: Date of : 64 Report #: [id number] PHYSICAL EXAMINATION: GENERAL: He is alert, pleasant, and cooperative. He is sitting in a chair, in moderate distress, appears reasonably well nourished. VITAL SIGNS: Temperature 98.5, pulse 105, respirations 16, blood pressure 164/54. SKIN: Warm, dry, no rashes. HEENT: Otherwise, unremarkable. Extraocular muscles intact. NECK: Supple. LUNGS: Diminished breath sounds, otherwise clear. HEART: Regular. Borderline tachycardic. I do not appreciate a murmur. ABDOMEN: Soft, nontender. EXTREMITIES: No cyanosis. GENITOURINARY AND RECTAL: Deferred. LABORATORY DATA: Blood cultures noted to have group B strep and this has confirmed Electrolytes: Sodium 134, potassium 4.2, chloride 97, bicarbonate is 27, anion gap of 10, BUN and creatinine 18 and 1.3, glucose of 168. Albumin of 3.1. CBC: White count 10.6, H and H 11.3 and 33.4, platelets of 255. ASSESSMENT: Group B strep septicemia of unclear etiology. There is question of skin versus genitourinary. We will check urinalysis. The patient will continue therapy with cefazolin. Continue treatment for influenza as well, although this seems less likely to me given both antigens are positive and the lack of signs and symptoms, although he was febrile when he came in and seems to have resolved rather quickly. Secondly diabetes mellitus. Thirdly, renal transplantation, we will continue immunosuppressive therapy at this point, no evidence of complications directly related to that. <ELECTRONICALLY SIGNED> By: Cyrus Heard MD 11/25/20 0744 0945 1139 Cyurs Heard MD /nt
[2020-11-25 08:04] VITALS: BP 144/59
--- NOTE | 2020-11-25 08:29 | EKG ---
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 : 1960 Requested By: Magnolia Mims Order Number: [id number] MD: Jeferson Davis Measurements Intervals [place] Rate: 97 P: 64 NC: 105 QRS: 57 QRSD: 93 T: 28 QT: 337 QTc: 428 Interpretive Statements Sinus rhythm Short NC interval Probable left atrial enlargement Borderline ST elevation, anterolateral leads Compared to ECG 11/23/2020 14:29:48 Electronically Signed On 11-25-2020 8:28:53 GROCERY CADDY by Jeferson Davis [email or web address] <ELECTRONICALLY SIGNED> By: Jeferson Davis MD 11/25/20827 9 9 Jeferson Davis MD /AMANDA
[2020-11-25 09:07] LABS: ALBUMIN 2.1 g/dL (3.4-5.0); CALCIUM 8.4 mg/dL (8.5-10.1); CREATININE 1.3 mg/dL (0.7-1.3); PHOSPHORUS 2.6 mg/dL (2.6-4.7); POTASSIUM 4.1 mmol/L (3.5-5.1)
[2020-11-25 10:05] LABS: ABSOLUTE NEUTROPHILS 8.5 thou/uL (1.4-8.2); BASOPHILS 0.3 % (0.0-2.0); EOSINOPHILS 0.1 % (0.0-3.0); HEMATOCRIT 29.3 % (42.0-52.0); HEMOGLOBIN 9.7 gm/dL (14.0-18.0); LYMPHOCYTES 7.6 % (24.0-44.0); MCH 29.5 pg (26.0-34.0); MCHC 33.1 g/dL (28.0-37.0); MCV 89.1 fL (80.0-100.0); MONOCYTES 7.1 % (1.0-8.0); PLATELET COUNT 229 thou/uL (150-400); POLYS 84.9 % (36.0-66.0); RBC 3.29 mil/uL (4.50-6.00); RDW 14.7 % (10.5-14.5)
--- NOTE | 2020-11-25 11:01 | NUR ---
INITIAL ASSESSMENT: YIMI reviewed chart and spoke with nursing and attending physician. Pt was admitted from home due to fever and Influenza. Pt placed in Enhanced Isolation. Pt had positive COVID test on 11/23 and had initially tested positive on 10/14/2020. Pt is febrile and not requiring O2. Pt is on IV abx. Pt has tested positive for Influenza A & B. YIMI spoke with pt via phone. Introduced role of SW. Pt is alert/orientated x 4. Pt reports he lives at home with his . Prior to admission, pt was independent with ADLs. Pt with hx of charcot foot and states that he has a brace/boot to use with ambulation. Pt states that his balance is sometimed impacted when he wears the brace/boot. No hx of HH services or post-acute placement. Pt's PCP is Dr. Edmundo Rodriguez. YIMI discussed with attending physician. Therapy to be ordered to evaluate pt for discharge needs. Plan is for pt to discharge home when medically stable. YIMI is following to assist as needed with discharge planning.
--- NOTE | 2020-11-25 11:10 | HC ---
[facility] [place] [address] CONSULTATION Name: JEREMY ODELL Room #: 354-P [facility] IN .R.#: [id number] Admission: 11/23/20 Attend Phys: Laila Batista MD Discharge: Date of : 64 Report #: [id number] THIS REPORT FOR: cc: Avery Rodriguez MD [facility] Avery Tomas MD [facility] Fer Chung MD ~ DATE OF SERVICE: 11/24/2020 CARDIOLOGY CONSULTATION INDICATION: Chest pain. HISTORY OF PRESENT ILLNESS: This is a 60-year-old gentleman with a history of renal transplant, PAD status post right SFA stenting, diabetes mellitus, hypertension, cardiomyopathy, recent COVID infection, presenting with chest pain, fever and chills. He was found to be positive for flu A and B. Blood cultures are pending. He describes intermittent substernal chest pain for the past 3 days. It may be related to deep inspiration. It comes and goes, not necessarily related to physical exertion. There is no relation with deep stretching of the arms or palpation of the area. His ambulation is limited due to a Charcot foot, undergoing treatment by wound care. He had a recent SFA stent in 08/2020. No prior cardiac disease. PAST MEDICAL HISTORY: Renal transplant. Peripheral vascular disease with stent. Diabetes mellitus, hypertension, hypercholesterolemia, Charcot joint, recent COVID infection 3-4 weeks ago. MEDICATIONS: Include Effient 10 mg daily, Prograf, Protonix, aspirin, amlodipine 5 mg, insulin. ALLERGIES: None. SOCIAL HISTORY: Negative for tobacco use. FAMILY HISTORY: Noncontributory. REVIEW OF SYSTEMS: A full 10-point review of systems performed. Only the pertinent positives and negatives are described in the HPI. PHYSICAL EXAMINATION: VITAL SIGNS: Blood pressure is 130/60, heart rate is 110 beats per minute. GENERAL APPEARANCE: This is a well-developed, well-nourished male in no acute distress. HEENT: Normocephalic, atraumatic. Oral mucosa moist. NECK: Supple. [facility] [address] [place] [address] CONSULTATION Name: JOSE RJEREMY J Room #: 354-P [facility] IN M.R.#: [id number] Admission: 11/23/20 Attend Phys: Laila Batista MD Discharge: Date of : 64 Report #: [id number] LUNGS: Clear to auscultation. CARDIAC: Regular rate and rhythm, S1, S2 positive. ABDOMEN: Soft, nontender. EXTREMITIES: No cyanosis, edema of the right ankle. ECG reveals sinus tachycardia, LVH. LABORATORY VALUES: White count is 10.6. Troponin is negative x 2. ASSESSMENT AND PLAN: 1. Chest pain syndrome, the differential diagnosis includes ischemia, musculoskeletal, pleuritis, GERD. Two sets of troponin levels are negative. His symptoms do not appear to be ischemic related at this time. We will need an ischemic evaluation in view of his risk factors. It can be performed after his infections have been diagnosed and treated. 2. Peripheral vascular disease, status post stent placement, continue with aspirin and Effient. 3. Flu A and B, as per ID. 4. Diabetes mellitus, continue with regimen and check Accu-Cheks. 5. Hypertension, continue medications. 6. Renal transplant, as per Nephrology. <ELECTRONICALLY SIGNED> By: Fer Chung MD 11/25/20 1110 1459 [id number] Fer Chung MD /nt
--- NOTE | 2020-11-25 14:36 | NUR ---
ECHO IN PT ROOM. PT IV BANDAGE NEEDS CHANGING. HOLDING CEFAZOLIN UNTIL IV SITE CLEANED POST ECHO PERFORMED.
--- NOTE | 2020-11-25 15:04 | NUR ---
Request order to change diet to carb control and discontinue renal restriction. Pt renal function has been stable since 2012 with transplant and renal restriction not necessary.
[2020-11-25 15:47] VITALS: BP 147/52
--- NOTE | 2020-11-25 16:22 | 2DMMODE ---
[facility] [place] [address] 2 D/M-MODE ECHOCARDIOGRAM Name: JEREMY ODLEL Room #: 354-P ADM IN M.R.#: [id number] Admission: 11/23/20 Attend Phys: Laila Batista MD Discharge: Date of : 64 Report #: [id number] THIS REPORT FOR: cc: Avery Rodriguez MD, FAAFP, FACEP, Douglas MD FAA FACERaul Gary MD [facility] ~ APPROVED REPORT Study performed: 11/25/2020 14:29:23 EXAM: Comprehensive 2D, Doppler, and color-flow Echocardiogram Patient Location: Bedside Room #: 354 Status: routine BSA: 1.70 HR: 105 bpm BP: 144/59 mmHg Rhythm: Tachycardia Other Information Study Quality: Good Indications Diabetes Chest Pain Hypertension/HDD Covid positive 2D Dimensions LVDd: 46.38 mm LVDs: 31.55 (25-40mm) IVC: 24.00 mm Tricuspid Valve TR Peak Dong.: 2.61 m/s TR Peak Gr.: 27.23 mmHg PA Pressure: 37.00 mmHg Left Ventricle The left ventricle is normal size. There is normal LV segmental wall motion. There is normal left ventricular wall thickness. Left ventricular systolic function is normal. The left ventricular ejection fraction is within the normal range. LVEF is 55-60%. The left ventricular diastolic function is normal. [facility] [address] [place] [address] 2 D/M-MODE ECHOCARDIOGRAM Name: JEREMY ODELL Room #: 354-P ADM IN M.R.#: [id number] Admission: 11/23/20 Attend Phys: Laila Batista MD Discharge: Date of : 64 Report #: [id number] Right Ventricle The right ventricle is normal size. The right ventricular systolic function is normal. Atria The left atrium size is normal. The right atrium size is normal. Aortic Valve The aortic valve is normal in structure, trileaflet No aortic regurgitation is present. There is no aortic valvular stenosis. Mitral Valve The mitral valve is normal in structure. There is no mitral valve regurgitation noted. No evidence of mitral valve stenosis. Tricuspid Valve The tricuspid valve is normal in structure. There is trace tricuspid regurgitation. Estimated PAP 35 mmHg. There is mild pulmonary hypertension. Pulmonic Valve The pulmonary valve is normal in structure. There is no pulmonic valvular regurgitation. Great Vessels The aortic root is normal in size. IVC is dilated and collapses >50% with inspiration. Pericardium There is no pericardial effusion. <Conclusion> Left ventricular systolic function is normal. There is normal LV segmental wall motion. LVEF is 55-60%. The aortic valve is normal in structure, trileaflet. No aortic regurgitation or stenosis The mitral valve is normal in structure. No mitral valve regurgitation There is trace tricuspid regurgitation. Estimated pulmonary artery [facility] [place] [address] 2 D/M-MODE ECHOCARDIOGRAM Name: JEREMY ODELL Room #: 354-P ADM IN M.R.#: [id number] Admission: 11/23/20 Attend Phys: Laila Batista MD Discharge: Date of : 64 Report #: [id number] pressure of 35 mmHg. There is no pericardial effusion. <ELECTRONICALLY SIGNED> By: Raul Rosas MD, FACC 11/25/201621 21 21 Raul Rosas MD, FACC /INF
[2020-11-25 19:43] VITALS: BP 142/53
[2020-11-26 03:41] VITALS: BP 165/56
--- NOTE | 2020-11-26 06:25 | NUR ---
FEVER STILL PERSISTENT OVER NIGHT, ALSO PT STATES HEARTBURN AND NAUSEA. RECEIVED ORDERS FOR SODIUM BICARB TID PRN. FOLLOWING POC WITH IVF AND IVPB. FALL AND ISOLATION PRECAUTIONS IN PLACE.
[2020-11-26 07:28] VITALS: BP 142/70
--- NOTE | 2020-11-26 13:49 | NUR ---
YIMI reviewed chart and spoke with nursing and attending physician. Pt remains in Enhanced Isolation due to COVID. Pt is febrile and on IV abx. Pt not requiring O2. MRI of right foot ordered. Ortho consult. Discussion with pt regarding I&D v. BKA. Awaiting MRI results. YIMI is following to assist as needed with discharge planning.
--- NOTE | 2020-11-26 14:43 | NUR ---
PT OFF UNIT FOR MRI
[2020-11-26 15:14] VITALS: BP 144/86
--- NOTE | 2020-11-26 15:50 | NUR ---
PT BACK ON UNIT
[2020-11-26 15:52] VITALS: BP 145/62
--- NOTE | 2020-11-26 16:14 | NUR ---
PT HAD BG OF 53 AT DINNER AC CHECK. 240ML OF JUICE, 2TBS PEANUT BUTTER, ONE PACK SALTINES AND APPLESAUCE PROVIDED PO TO PT. PT IS A&OX4, ABLE TO INTAKE PO WITH NO ISSUE.
[2020-11-26 19:51] VITALS: BP 162/72
[2020-11-27 05:09] VITALS: BP 138/71
--- NOTE | 2020-11-27 06:06 | NUR ---
Elevated temp reported to PROCESS VALIDATION ENGINEER deputy commonwealth's attorney. Tyl given last night and again this am. Zofran given for nausea with good relief. He stated he slept well during the night. Dressing on right foot intact. Tolerating room air well with no respiratory distress. Voided per urinal.
[2020-11-27 07:14] VITALS: BP 134/67
[2020-11-27 08:20] VITALS: BP 140/54
--- NOTE | 2020-11-27 13:36 | NUR ---
SW reviewed chart and spoke with nursing and attending physician. Pt remains in Enhanced Isolation due to COVID. Pt has been febrile and is on IV abx. Right BKA is planned for Wednesday. Consult placed for 5N to evaluate pt after surgery for possible admission to inpt acute rehab. YIMI is following to assist as needed with discharge planning.
[2020-11-27 15:19] VITALS: BP 168/69
[2020-11-27 17:00] VITALS: BP 140/54
--- NOTE | 2020-11-27 17:02 | NUR ---
RN ASSUMED PT'S CARE AT 0700AM, PT IS A&OX3, PT IS CONTINUING IV ABX AND IV FLUID , PT IS ON COVID ISOLATION, RN HAS REPORTED TO ID ABOUT PT STILL HAS FEVER, BUT PT'S WEAKNESS HAS IMPROVED, PT DENIES CHEST PAIN AND SOB AT THIS TIME, PT'S R FOOT WOUND CARE HAS DONE, PT WILL HAVE R BKA AT 11/29/20 IF MEDICAALY CLEARED AND STABLE,
[2020-11-27 21:12] VITALS: BP 170/72
[2020-11-28 04:01] VITALS: BP 164/71
[2020-11-28 05:55] LABS: CALCIUM 8.2 mg/dL (8.5-10.1); CREATININE 1.1 mg/dL (0.7-1.3); PHOSPHORUS 2.6 mg/dL (2.5-4.9); POTASSIUM 4.1 mmol/L (3.5-5.1)
--- NOTE | 2020-11-28 06:26 | NUR ---
PT SCHEDULED FOR SURGERY TOMORROW 11/29 AND CONSENT IN CHART TO BE SIGNED. FOLLOWING POC WITH IVF/IVPB. CHALLENGE WAS FEVER. TYLENOL GIVEN WITH MINOR DROP IN TEMP. BLANKETS REMOVED. CALLED AND DISCUSSED WITH BENEFITS ADMINISTRATOR. IBUPROFEN NOT GIVEN DUE TO KIDNEY TRANSPLANT.
[2020-11-28 07:20] VITALS: BP 144/58
[2020-11-28 09:55] LABS: CALCIUM 8.3 mg/dL (8.5-10.1); POTASSIUM 4.1 mmol/L (3.5-5.1)
--- NOTE | 2020-11-28 12:11 | NUR ---
SW reviewed chart and spoke with nursing and attending physician. Pt remains in Enhanced Isolation due to COVID. Pt is febrile and on IV abx. Pt's right BKA surgery is scheduled for tomorrow. 5N consult ordered and will evaluate pt after surgery. SW is following to assist as needed with discharge planning.
--- NOTE | 2020-11-28 13:50 | HC ---
[facility] [place] [address] CONSULTATION Name: JEREMY ODELL Room #: 354-P [facility] IN .R.#: [id number] Admission: 11/23/20 Attend Phys: Laila Batista MD Discharge: Date of : 64 Report #: [id number] THIS REPORT FOR: cc: Avery Rodriguez MD Avery Tomas MD [facility] Mario Mcdonough MD ~ DATE OF SERVICE: 11/25/2020 WOUND CARE CONSULTATION PERSONAL PHYSICIAN: Avery Rodriguez MD CHIEF COMPLAINT: Right foot ulcer with Charcot arthropathy. HISTORY OF PRESENT ILLNESS: This is a 60-year-old black male, who has been a longstanding patient of mine for chronic recurrent ulcers on his right foot secondary to Charcot arthropathy. The patient states that in the past 3-4 days, he started having increasing swelling, redness and pain in his right foot with increased amount of drainage. I saw the patient approximately 2 weeks ago and the chronic ulcer on the top of his foot was stable without signs of infection. The patient states the swelling and redness is all new. The patient also states, of note, he had tested positive for COVID approximately 4 weeks ago. The patient has still had persistent fevers and chills, and upon admission to the hospital, was found to be tested positive for both influenza A and B. The patient denies any other associated wounds at this time. The patient has still been following closely with Dr. Sam Reis for his Charcot arthropathy. PAST MEDICAL HISTORY: Significant for longstanding history of diabetes mellitus, Charcot arthropathy of the right foot, status post kidney transplant in 2011, history of a previous cardiomyopathy. CURRENT MEDICATIONS: Multiple, I reviewed the patient's medication list. DRUG ALLERGIES: None. SOCIAL HISTORY: The patient does not smoke or drink alcohol. Lives at home with his family. FAMILY HISTORY: Not pertinent to current medical condition. REVIEW OF SYSTEMS: CONSTITUTIONAL: The patient had fevers and chills upon admission to the hospital. Denies any in the past 24 hours. NEUROLOGIC: The patient complains of mild generalized weakness, but no isolated weakness in arms or legs. [address] [address] CONSULTATION Name: JEREMY ODELL Room #: 354-P [facility] IN ..#: [id number] Admission: 11/23/20 Attend Phys: Laila Batista MD Discharge: Date of : 64 Report #: [id number] EYES: No complaints. ENT: No complaints. CARDIAC: The patient denies chest pain, palpitations, peripheral edema. RESPIRATORY: The patient denies shortness of breath, cough or wheezes. GASTROINTESTINAL: The patient denies nausea, vomiting, or abdominal pain. GENITOURINARY: The patient denies urgency or frequency. MUSCULOSKELETAL: No complaints, but the patient does have a Charcot arthropathy, right foot. SKIN: There is a chronic ulcer on the dorsal right foot, now with swelling, redness and pain. PHYSICAL EXAMINATION: VITAL SIGNS: Temperature 37.6, pulse 97, respirations 16, BP 134/67. GENERAL: This is an alert and oriented x 3, pleasant black male who is in mild distress secondary to symptoms. HEENT: Normocephalic, atraumatic. Mucous membranes are somewhat dry. Pupils are round. Sclerae white. NECK: Without JVD. LUNGS: Clear. HEART: Regular. ABDOMEN: Soft, nontender. EXTREMITIES: The patient moves all extremities without difficulty. Evaluation of right foot reveals significant Charcot arthropathy with the ulceration over the dorsal medial aspect of the foot with increased erythema, warmth and tenderness. There is eschar over the medial ulceration. No other associated ulcerations are noted. Distal pulses are intact. Left lower extremity is without signs of any ulcerations. NEUROLOGIC: Cranial nerves 2-12 grossly intact. Motor and sensory are grossly intact. LABORATORY DATA: White count 10.0, hemoglobin 9.7, BUN 19, creatinine 1.3, albumin 2.1. IMPRESSION: 1. Chronic ulceration, right dorsal medial foot in the patient with underlying Charcot arthropathy, now with what appears to be cellulitis. 2. Peripheral arterial disease. 3. Peripheral neuropathy. 4. History of recent COVID-19 infection. 5. History of cardiomyopathy with an EF 25-30%. 6. Hypertension. 7. Diabetes mellitus. 8. Severe protein-calorie malnutrition, albumin 2.1. 9[place] [address] CONSULTATION Name: JOSE RJEREMY J Room #: 354-P [facility] IN M.R.#: [id number] Admission: 11/23/20 Attend Phys: Laila Batista MD Discharge: Date of : 64 Report #: [id number] PLAN: At this time, we will start Betadine to the right dorsal medial foot daily and p.r.n. MRI will be ordered to evaluate for underlying osteomyelitis as well as we will put a consult into Orthopedics with Dr. Reis to evaluate the patient. IV antibiotics have already been ordered and started. We will make sure we maximize the patient's oral protein supplementation for healing. We utilize physical and occupational therapy as able. We will continue all other current medications and continue to follow the patient. I appreciate the ability to consult. <ELECTRONICALLY SIGNED> By: Mario Diaz MD 11/28/20 1350 1312 1408 Mario Diaz MD /nt
[2020-11-28 14:18] LABS: HEMOGLOBIN 9.5 gm/dL (14.0-18.0); MCH 29.2 pg (26.0-34.0); MCHC 32.8 g/dL (28.0-37.0); MCV 89.1 fL (80.0-100.0); RBC 3.25 mil/uL (4.50-6.00); RDW 15.2 % (10.5-14.5); WBC 10.7 thou/uL (4.0-11.0)
--- NOTE | 2020-11-28 14:26 | NUR ---
L FOREARM IV SHOWING SIGNS OF INFILTRATION, COOL, SWOLLEN SKIN. IV FLUIDS DC'D. ATTEMPT X2 FOR NEW IV SITE. SUCCESSFUL BLOOD RETURN ON L AC WITH 22G BUT EXTREMELY POSITIONAL. UNSUCCESSFUL ATTEMPT ON L HAND. IV TEAM CALLED. R ARM WITH OLD DIALYSIS FISTULA.
[2020-11-28 16:05] VITALS: BP 116/80
[2020-11-28 20:30] VITALS: BP 160/69
[2020-11-29] VITALS (8 sets, daily range): BP systolic 126–167; BP diastolic 49–84
--- NOTE | 2020-11-29 00:01 | NUR ---
SPOKE WITH BOTH FARHAN Henry AND Joshua DURON ABOUT DC OF ISOLATION. PT IS NOW OUT OF ALL ISOLATION PRECAUTIONS.
--- NOTE | 2020-11-29 11:08 | NUR ---
SW reviewed chart and spoke with nursing and attending physician. Enhanced Isolation precautions have been discontinued. Pt scheduled to have right BKA today. SW discussed case with [facility] clinical rehab specialist. PT/OT to evaluate and [facility] to evaluate pt on Wednesday. Will need insurance authorization for post-acute placement. No weekend discharge planned. YIMI is following to assist as needed with discharge planning.
--- NOTE | 2020-11-29 11:55 | NUR ---
PATIENT ARRIVED TO UNIT AT APPROX 1150. SPOUSE AT BEDSIDE. DENIES PAIN. ORIENTED TO ROOM. DR. DOOLEY TO BE CALLED PER PATIENT REQUEST. WILL CONTINUE TO MONITOR AND FOLLOW PLAM OF CARE. REPORT ENDORSED TO CHARGE NURSE.
--- NOTE | 2020-11-29 13:15 | NUR ---
RN ASSUMED PT'S CARE AT 0700AM, PT IS A&OX3, PT'S VS ARE STABLE, PT HAS SIGNED CONSENT FOR R BKA TODAY, PT WAS GOING TO OR ABOUT 0815AM, PT 'S FANILY HAS NOTIFIED ABOUT PT'S SURGERY TODAY. PT IS OFF COVID ISOLATION , PT WILL TRANSFER TO ROOM 449 , AFTER FINISHING SRUGERY.
--- NOTE | 2020-11-29 19:37 | NUR ---
Pt arrived to floor from recovery room at 1315 post rt bka in stable condition.Post op vss. Blood sugar chech at lunch and insulin given as ordered.Pt c/o phanthom pain ,morphine sulfate ivp given as ordered. at bs most of the time till 1500.Assisted pt to bsc. Large soft formed brown stool noted.Pericare given.Will continue to monitor.
--- NOTE | 2020-11-30 04:52 | NUR ---
PT TRANSFRRED FROM 4WEST @0100. A&OX4. IV INTACT AND FLUIDS INFUSING. PT RESTING WELL IN BED. RT BKA DRESING C/D/I. URINAL AT BEDSIDE. FALL PREC IN PLACE AND WILL CONT TO MONITOR.
[2020-11-30 08:08] LABS: HEMATOCRIT 29.8 % (42.0-52.0); HEMOGLOBIN 9.9 gm/dL (14.0-18.0)
[2020-11-30 08:20] LABS: POTASSIUM 4.4 mmol/L (3.5-5.1)
[2020-11-30 08:31] VITALS: BP 125/69
[2020-11-30] MEDS ORDERED: CELLCEPT 250 M250 MG PO (11:40)
[2020-11-30] MEDS ORDERED: HUMALOG100 UNIT/1 SUBQ (11:40)
[2020-11-30] MEDS ORDERED: METOPROLOL SUCC25 M1 PO (11:40)
[2020-11-30] MEDS ORDERED: CEFAZOLIN 1GM VI1 G1 INJECTION (11:41)
[2020-11-30] MEDS ORDERED: NOVOLOG100 UNIT/1 SUBQ (11:41)
--- NOTE | 2020-11-30 14:04 | NUR ---
Patient complained of pain radiating from amputation site. Pain increased with physical therapy. Pharmacological intervention provided with patient responding with decrease in pain rated at a 7 to 4. Amputation site and other lower extremity were elevated to assist with comfort. Patient stated intervention assisted with pain management in addition to medication. Patient also stated disatisfaction with meals from hospital. Stated that he wanted to order food from outside the facility. Education provided on need for carb controlled diet. Patient accepted and ate 100% of lunch. Continue to monitor intake.
[2020-11-30 16:37] VITALS: BP 128/63
[2020-11-30 19:50] VITALS: BP 120/62
--- NOTE | 2020-11-30 21:34 | NUR ---
PT WATCHING TV TALKING ON PHONE. PT CALLED FOR ASSISTANCE TO USE RESTROOM. PT STATED I AM JUST GOING TO WALK TO THE RESTROOM, I DO NOT LIKE THE BSC. PT THEN STATED I FORGOT ABOUT MY LEG, MY PROCEDURE WAS JUST THE OTHER DAY. PT DID STAND WITH WALKER AND THEN STATED NEVER MIND I AM GOING TO USE THE URINAL VERSUS THE BSC. HVAC INTACT. HS SNACK PROVIDED. BED ALARM ON.
[2020-12-01 04:13] VITALS: BP 128/52
[2020-12-01 07:05] VITALS: BP 139/65
[2020-12-01 16:12] VITALS: BP 124/56
--- NOTE | 2020-12-01 18:27 | NUR ---
REPORTED RIGHT LE PAIN RATED A 7 ON 1-10 SCALE AT 1030 THIS AM-NORCO 7.5/325 2 TABS PO PRN AT 1030 WITH VERBALIZED FAIR RELIEF-REPEATED AT 1700 FOR REPORTED RLE PAIN RATED A 5 BUT STATES "I DON'T WANT IT TO GET ANY WORSE" AFTER TAKING STATES "I THJINK I WILL JUST STICK WITH THE MORPHINE-IT WORKS A LOT BETTER" UP AT BEDSIDE TO USE URINAL WITH SBA X1. HEMOVAC DRAIN WITH MODERATE AMOUNT SERROUS DRAINAGE. LEFT AC SALINE LOCK-PATENT NO REDNESS SWELLING /EDEMA. APPETITE GOOD-ACCUCHEKS ACHS AND SCHEDULED SS INSULIN PER ORDER.
[2020-12-01 19:45] VITALS: BP 149/74
--- NOTE | 2020-12-02 04:57 | NUR ---
RECIEVED CARE OF THIS PATIENT AT 1900. PATIENT ALERT AND ORIENTED X4. HAS A NEW RBKA. DRESSING D/I. ACCUCHECK WAS 116. NO COVERAGE. C/O PAIN, MED GIVEN. SLEPT OFF AND ON DURING THIS SHIFT.
[2020-12-02 08:30] VITALS: BP 173/75
--- NOTE | 2020-12-02 09:22 | NUR ---
ASSUMED CARE AT 0700. PT IS A&O X4. STANDBY ASSIST. IV IS INTACT AND SHOWS NO SIGNS OF REDNESS OR SWELLING. RA. BSG. VSS. DRESSING IS INTACT AND DRY. FALL PRECAUTION. CALL LIGHT WITHIN REACH. PT DENIES PAIN AND SOA. WILL CONTINUE TO MONITOR.
--- NOTE | 2020-12-02 12:09 | O ---
[facility] [place] [address] OPERATIVE REPORT Name: JEREMY ODELL Room #: 441-P [facility] IN ..#: [id number] Admission: 11/23/20 Attend Phys: Laila Batista MD Discharge: Date of : 64 Report #: [id number] THIS REPORT FOR: cc: Avery Rodriguez MD, FAAFP, FACEP, Douglas MD FAAFP FACEP Kneidel, Matthew T. MD ~ DATE OF SERVICE: 11/29/2020 PREOPERATIVE DIAGNOSES: 1. Right ankle Charcot arthropathy. 2. Right foot infection. POSTOPERATIVE DIAGNOSES: 1. Right ankle Charcot arthropathy. 2. Right foot infection. PROCEDURE: Right vhkfn-kwy-bygu amputation. SURGEON: Dr. Sam Reis. CLIENT RELATIONS REPRESENTATIVE: None. ANESTHESIA: General. ESTIMATED BLOOD LOSS: 50 mL. DRAINS: No drains. TOURNIQUET TIME: 40 minutes. DESCRIPTION OF PROCEDURE: The patient was brought to the operating room where he was placed under general anesthesia. Once under adequate general anesthesia, his right lower extremity was prepped and draped in sterile manner. The extremity was elevated and tourniquet placed to 250 mmHg. A fishmouth-type incision about the mid portion of the tibia was then made. This was dissected down directly to the bone and then through the deep fascia. Cautery was used to cut through the musculature. The posterior tibial vessels were isolated and subsequently the posterior tibial nerve was incised proximally in the wound. The tibia was then exposed with a periosteal elevator and subsequently transected with oscillating saw, it was bevelled anteriorly with the oscillating saw. 2 cm proximal to this, the fibula was transected with the oscillating saw in oblique fashion. The wound was then irrigated copiously and a Hemovac drain was placed. The wound was then closed with #1 Vicryl in the deep fascia, 2-0 Vicryl in subcutaneous tissues and angel were used for the skin. The gastroc musculature had been sutured to the periosteum of the tibia anteriorly. The [address] [address] OPERATIVE REPORT Name: JEREMY ODELL Room #: 441-P [facility] IN M.R.#: [id number] Admission: 11/23/20 Attend Phys: Laila Batista MD Discharge: Date of : 64 Report #: [id number] wound was closed with 1 Vicryl in the deep fascia, 2-0 Vicryl in subcutaneous tissues and angel were used for the skin. Tourniquet was let down at 40 minutes. Wound was dressed with Xeroform, 4 x 4s, and sterile soft compressive dressing was placed. There were no complications from the procedure. The patient tolerated the procedure well and was taken to recovery room without incident. <ELECTRONICALLY SIGNED> By: Sam Reis MD 12/02/20 1209 1023 1158 MD wen Ojeda
--- NOTE | 2020-12-02 13:13 | NUR ---
CM RECEIVED NOTICED FROM FARIDA SCOTT, LIAISON, SHE IS SEEKING INSURANCE AUTH.
[2020-12-02 16:23] VITALS: BP 139/71
[2020-12-02 19:16] VITALS: BP 151/64
[2020-12-03 04:26] VITALS: BP 149/68
[2020-12-03 06:32] LABS: CALCIUM 8.5 mg/dL (8.5-10.1); CREATININE 0.8 mg/dL (0.7-1.3); POTASSIUM 4.3 mmol/L (3.5-5.1)
[2020-12-03 07:35] VITALS: BP 148/61
--- NOTE | 2020-12-03 08:00 | NUR ---
ASSUMED CARE OF THE PATIENT AT 1900; AOX4; STB TO BSC WITH WALKER/URINAL AT BEDSIDE; C/O OF PAIN MANAGED WITH PRN MEDICATIONS; VSS/ASSESSMENTS CHARTED; PLAN IS FOR PATIENT TO TRANSFER TO [facility] REHAB TODAY; WILL CONTINUE TO MONITOR AND FOLLOW POC.
--- NOTE | 2020-12-03 08:11 | NUR ---
AUTHORIZATION REQUESTED 12/02/20 FROM INSURANCE FOR ACUTE REHAB ADMISSION. AWAITING RESPONSE. ANTICIPATE RESPONSE AND LIKELY ADMISSSION ON 12/03/20.
[2020-12-03] MEDS ORDERED: LANTUS SUBQ ×2 (09:26→09:32)
[2020-12-03] MEDS ORDERED: HUMALOG100 UNIT/1 SUBQ ×2 (09:26→09:32)
--- NOTE | 2020-12-03 10:52 | NUR ---
AUTH WAS RECEIVED FOR PT TO GO TO 5N. CARE TEAM INDICATED THAT PT IS MEDICALLY STABLE TO DC THERE THIS DAY. CM SPOKE WITH PT AND SPOUSE AND THEY ARE AWARE AND AGREEABLE. PT TO DC TO 5N THIS MORNING. REPORT TO BE CALLED TO . NO OTHER CM INTERVENTION INDICATED. CASE CLOSED.
--- NOTE | 2020-12-03 11:14 | NUR ---
AAOX4. CALM, COOPERATIVE. APPETITE BRISK. DENIES DEANNA WALKER. DISCHARGING TO 5N TODAY; REPORT CALLED TO CHINO DORANTES.
--- NOTE | 2020-12-05 17:06 | PATH ---
[facility] [place] [address] [place] [address] PATHOLOGY RPT PROCEDURE Name: JOHN PAUL ODELL Room #: 441-P DIS IN M.R.#: [id number] Admission: 11/23/20 Date of : 64 Discharge: 12/03/20 Report #: [id number] Path Case #: [id number] L[facility] Accession Number: [id number] . 01 Material submitted: . knee - RIGHT BELOW KNEE. Modifiers: right . 01 Clinical history: . RIGHT CHARCOT ARTHROPATHY . 02 Diagnosis: Leg, "right below knee amputation": - Multifocal ulceration with necrotic acute inflammatory exudate with micro-abscesses formation and with gangrenous type of necrosis. - Skin surgical resection margins appear viable. - Anterior and posterior tibial vasculature reveal calcific atherosclerotic narrowing. . (SHA:alona; 12/05/2020) QLM 12/05/2020 1516 Local . 02 Electronically signed: . Kei Hubbard MD, Pathologist NPI- [id number] . 01 Gross description: . The specimen is received fresh in a red biohazard bag, labeled "John Paul Odell, right below knee". Received is a right qrnlr-zcf-wzfl amputation during 22.5 cm from heel to toe, 15.2 cm from heel to skin margin, 22.3 cm from heel to tibial bone margin, and 26.2 cm from heel to fibular bone margin. The skin and soft tissue margins are viable. Both bone margins are blunt in appearance, consistent with transection, and appear grossly unremarkable. All five toes are present. The ankle is severely dislocated. On the lateral aspect of the malleolus, there is a pale paul patch of skin measuring 2.6 x 1.4 cm, indicating loss of pigmentation. On the lateral aspect of the mid-foot and heel, there are well-circumscribed, firm, flaky pale paul lesions measuring 1.2 x 0.9 and 1.2 x 1.2 cm. On the dorsal aspect, and extending onto the medial aspect, of the foot, there is a poorly circumscribed, irregular in contour and ledesma-paul to ledesma-brown lesion measuring 7.5 x 4.5 cm. Sectioning through this lesion reveals a large amount of underlying exudate. Sectioning through the anterior tibial vasculature reveals patent lumens. Sectioning through the posterior tibial vasculature reveals pinpoint lumens. The specimen is submitted representatively as follows: . A1 skin and soft tissue margin A2 door to door sales representative section of lesion on lateral aspect of the mid-foot [address] [address] PATHOLOGY RPT PROCEDURE Name: JOHN PAUL ODELL Room #: 441-P DIS IN M.R.#: [id number] Admission: 11/23/20 Date of : 64 Discharge: 12/03/20 Report #: [id number] Path Case #: [id number] A3 door to door sales representative section of lesion on lateral aspect of heel A4 door to door sales representative section of lesion on dorsal/medial aspect of foot A5 anterior and posterior tibial vasculatures. . Gross photographs are taken. (CAA; 12/04/2020) QAC/QA 12/04/2020 1550 Local . 02 Pathologist provided ICD-10: L97.919, L02.415, I96 . 02 CPT . 201338 Specimen Comment: A courtesy copy of this report has been sent to [phone] Specimen Comment: Report sent to Performed at: [address] [facility], [place] [id number] MD Kei Hubbard MD Phone: [phone] Performed at: [address] [facility] [id number] MD Tamera Bains MD Phone: [phone]
== END 2020-12-03 11:31 | DRG 853 ==
LOC: ER 14:09 → EROBS 18:29 → 3W 18:29 → 4W 11-29 12:26 → 4S 11-30 01:09
PROVIDERS: Emergency Medicine; Hospitalist; Internal Medicine; Internal Medicine Nephrology; Orthopaedic Surgery Foot and Ankle Surgery; ADMIT Internal Medicine; ATTEND Internal Medicine
PROC: 0Y6H0Z2 Detachment at Right Lower Leg, Mid, Open Approach (ICD-10-PCS; principal; 2020-11-29)
DX: A40.1 Sepsis due to streptococcus, group B (principal); U07.1 COVID-19; E43 Unspecified severe protein-calorie malnutrition; L03.115 Cellulitis of right lower limb; I42.9 Cardiomyopathy, unspecified; Z94.0 Kidney transplant status; E87.1 Hypo-osmolality and hyponatremia; M14.671 Charcot's joint, right ankle and foot; M19.071 Primary osteoarthritis, right ankle and foot; J10.1 Influenza due to other identified influenza virus with other respiratory manifestations; K21.9 Gastro-esophageal reflux disease without esophagitis; E11.42 Type 2 diabetes mellitus with diabetic polyneuropathy; E11.22 Type 2 diabetes mellitus with diabetic chronic kidney disease; I08.1 Rheumatic disorders of both mitral and tricuspid valves; I10 Essential (primary) hypertension; D64.9 Anemia, unspecified; Z90.49 Acquired absence of other specified parts of digestive tract; Z79.4 Long term (current) use of insulin; Z79.899 Other long term (current) drug therapy; Z79.01 Long term (current) use of anticoagulants; Z79.82 Long term (current) use of aspirin; Z87.891 Personal history of nicotine dependence; Z68.26 Body mass index [BMI] 26.0-26.9, adult
CPT/HCPCS: 10045; 10100; 10102; 10879; 50010; 50101; 50386; 51412; 53000; 56524; 56525; 57091; 62110; 62900; 70005

== ENCOUNTER 2020-12-02 10:42 | Inpatient (IN) | payer OTHER ==
[~2020-12-02] VITALS: Ht 162.6 cm; Wt 66.7 kg
--- NOTE | ~2020-12-02 | PLAN ---
[facility] [place] [address] REHAB UNIT PLAN OF CARE Name: JEREMY ODELL Room #: 514-P ADM IN .R.#: [id number] Admission: 12/03/20 Attend Phys: Eddie Resendez MD Discharge: Date of : 64 Report #: [id number] THIS REPORT FOR: cc: Avery Rodriguez MD [facility] Avery Rodriguez [facility] ~ DATE OF SERVICE: 12/04/2020 PROGRESS NOTE AND OVERALL PLAN OF CARE HISTORY OF PRESENT ILLNESS: The patient is a 60-year-old -[place] male who was admitted initially on 11/23/2020 to the hospital with a right foot infection related to his chronic Charcot abnormality. He had fever and chills. He was noted to have flu B and flu A positive on 11/23/2020, but repeat influenza testing to 11/25/2020 was negative. He had COVID-19 positive on 10/14/2020. He had multiple configuration consultant physicians involved. It was felt that the fevers are related to the foot and he underwent a right below-knee amputation on 11/29/2020. He has significant functional mobility and ADL deficits and has now been admitted for acute inpatient rehabilitation. Please see the history and physical. He has no specific complaints today. PHYSICAL EXAMINATION: VITAL SIGNS: Temperature 98.1, pulse 106, respirations 20, and blood pressure 149/57. HEENT: Appeared to be benign. CHEST: Sounded clear to auscultation. CARDIAC: Regular rate and rhythm. ABDOMEN: Bowel sounds positive, nontender. He does have significant intrinsic atrophy of his hands consistent with his premorbid diabetic peripheral neuropathy. Below-knee amputation is dressed. Left lower extremity, no focal calf swelling. Bed mobility is standby assistance. Transfers bed to chair, min assist. He had ambulated 20 feet min assist with a front-wheeled walker. Upper body dressing, supervision with lower body dressing, mod assist. ASSESSMENT: A 60-year-old male with the following problem list: 1. Right foot infection with nonhealing wound, Charcot abnormality, status post below-knee amputation on 11/29/2020. 2. Group B strep septicemia. 3. Diabetes mellitus type 2 with peripheral neuropathy. 4. Postoperative acute blood loss anemia. 5. Hypertension. 6. History of renal transplant, on immunosuppression. 7. History of peripheral arterial disease, status post PCI. 8. History of COVID on 10/14/2020. [address] [address] REHAB UNIT PLAN OF CARE Name: JEREMY ODELL Room #: 514-P [facility] IN ..#: [id number] Admission: 12/03/20 Attend Phys: Eddie Resendez MD Discharge: Date of : 64 Report #: [id number] PLAN: The overall plan of care is based on the preadmission screen and information garnered from therapy assessments. 1. Estimated length of stay is probably 10-14 days. 2. Medical prognosis is reasonably good. 3. Anticipated interventions includes the interdisciplinary acute inpatient rehabilitation program. 4. Anticipated functional outcomes would be for the patient to become modified independent with transfers, mobility, ADLs, so he can hopefully return back to his prior living situation. 5. Discharge destination would be back to the home setting where he lives with his . 6. Expected therapy by discipline includes PT and OT 1-1/2 hours per day each five days a week throughout the duration of the acute inpatient rehabilitation stay. By: [id number] Eddie Resendez MD /nt
[~2020-12-02 10:42] MED LIST changes: +CEFAZOLIN 1GM VI1 G1 INJECTION; +CLOPIDOGREL75 MG PO; +METOPROLOL SUCC25 M1 PO; +PRASUGREL HCL10 MG PO
[2020-12-03] MEDS ORDERED: HUMALOG100 UNIT/1 SUBQ ×2 (09:26→09:32)
[2020-12-03] MEDS ORDERED: LANTUS SUBQ ×2 (09:26→09:32)
[2020-12-03 19:37] VITALS: BP 196/87
[2020-12-03 21:30] VITALS: BP 149/57
[2020-12-04 06:43] LABS: HEMOGLOBIN 9.1 gm/dL (14.0-18.0); MCH 28.9 pg (26.0-34.0); MCHC 32.6 g/dL (28.0-37.0); MCV 88.8 fL (80.0-100.0); RBC 3.15 mil/uL (4.50-6.00); RDW 14.8 % (10.5-14.5); WBC 5.7 thou/uL (4.0-11.0)
[2020-12-04 07:06] LABS: CALCIUM 8.7 mg/dL (8.5-10.1); CREATININE 0.8 mg/dL (0.7-1.3); POTASSIUM 4.2 mmol/L (3.5-5.1)
[2020-12-04 07:36] LABS: FOLIC ACID 5.4 ng/mL (8.6-58.9)
[2020-12-04 08:00] VITALS: BP 151/71
[2020-12-04 20:00] VITALS: BP 168/71
[2020-12-05 01:06] LABS: GLYCOHEMOGLOBIN (HGB A1C) 12.6 % (4.8-5.6)
[2020-12-05 02:06] LABS: GLYCOHEMOGLOBIN (HGB A1C) 12.5 % (4.8-5.6)
[2020-12-05 05:51] LABS: ALBUMIN 2.1 g/dL (3.4-5.0); CALCIUM 8.8 mg/dL (8.5-10.1); CREATININE 0.8 mg/dL (0.7-1.3); POTASSIUM 3.9 mmol/L (3.5-5.1)
[2020-12-05 08:00] VITALS: BP 175/71
[2020-12-05 21:16] VITALS: BP 168/78
[2020-12-06 07:15] VITALS: BP 149/60
[2020-12-06 19:50] VITALS: BP 166/70
[2020-12-07 04:37] LABS: ALBUMIN 2.2 g/dL (3.4-5.0); CALCIUM 8.6 mg/dL (8.5-10.1); CREATININE 0.9 mg/dL (0.7-1.3); PHOSPHORUS 3.2 mg/dL (2.5-4.9)
[2020-12-07 07:21] VITALS: BP 140/59
[2020-12-07 20:00] VITALS: BP 166/60
[2020-12-08 07:46] VITALS: BP 151/68
[2020-12-08 20:00] VITALS: BP 171/65
[2020-12-09 07:15] VITALS: BP 169/73
[2020-12-09 19:25] VITALS: BP 161/74
[2020-12-10 07:22] LABS: ALBUMIN 2.3 g/dL (3.4-5.0); CREATININE 0.8 mg/dL (0.7-1.3); PHOSPHORUS 4.7 mg/dL (2.6-4.7); POTASSIUM 4.2 mmol/L (3.5-5.1)
[2020-12-10 08:00] VITALS: BP 158/64
[2020-12-10 11:41] LABS: CALCIUM 9.3 mg/dL (8.5-10.1); CREATININE 0.9 mg/dL (0.7-1.3); POTASSIUM 4.3 mmol/L (3.5-5.1)
[2020-12-10 19:25] VITALS: BP 149/70
[2020-12-11 08:00] VITALS: BP 154/66
[2020-12-11 20:00] VITALS: BP 168/69
[2020-12-12 08:00] VITALS: BP 161/71
[2020-12-12 17:00] VITALS: BP 161/71
[2020-12-12 19:43] VITALS: BP 165/67
[2020-12-13 05:50] LABS: ALBUMIN 2.8 g/dL (3.4-5.0); CALCIUM 9.3 mg/dL (8.5-10.1); CREATININE 1.1 mg/dL (0.7-1.3); PHOSPHORUS 5.1 mg/dL (2.5-4.9); POTASSIUM 4.7 mmol/L (3.5-5.1)
[2020-12-13 07:15] VITALS: BP 197/90
[2020-12-13 09:03] VITALS: BP 161/71
[2020-12-13] MEDS ORDERED: TYLENOL325 MG PO (09:29)
[2020-12-13] MEDS ORDERED: VITAMIN B-12500 MCG PO (09:29)
[2020-12-13] MEDS ORDERED: METOPROLOL SUCC25 M1 PO (09:29)
[2020-12-13] MEDS ORDERED: VITAMIN D3125 MC1 PO (09:29)
[2020-12-13] MEDS ORDERED: COZAAR 50 MG TA50 MG PO (09:29)
[2020-12-13] MEDS ORDERED: LYRICA 50 MG50 MG PO ×2 (09:31→11:57)
[2020-12-13 10:01] VITALS: BP 161/71
[2020-12-13] MEDS ORDERED: LANTUS SUBQ (11:10)
[2020-12-13] MEDS ORDERED: NOVOLOG100 UNIT/1 SUBQ (11:10)
[2020-12-13] MEDS ORDERED: TRULICITY0.75 MG/0. SUBQ (11:20)
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
== END 2020-12-13 13:30 | disposition home health service (06) | DRG 637 ==
PROVIDERS: Hospitalist; Internal Medicine Nephrology; Nurse Practitioner Family; ADMIT Physical Medicine & Rehabilitation; ATTEND Physical Medicine & Rehabilitation
DX: E11.621 Type 2 diabetes mellitus with foot ulcer (principal); A40.1 Sepsis due to streptococcus, group B; E43 Unspecified severe protein-calorie malnutrition; Z94.0 Kidney transplant status; D62 Acute posthemorrhagic anemia; I42.9 Cardiomyopathy, unspecified; R53.81 Other malaise; K22.70 Barrett's esophagus without dysplasia; E11.42 Type 2 diabetes mellitus with diabetic polyneuropathy; E11.319 Type 2 diabetes mellitus with unspecified diabetic retinopathy without macular edema; K21.9 Gastro-esophageal reflux disease without esophagitis; R07.89 Other chest pain; E11.610 Type 2 diabetes mellitus with diabetic neuropathic arthropathy; E55.9 Vitamin D deficiency, unspecified; E53.8 Deficiency of other specified B group vitamins; M19.071 Primary osteoarthritis, right ankle and foot; E11.51 Type 2 diabetes mellitus with diabetic peripheral angiopathy without gangrene; I10 Essential (primary) hypertension; G31.84 Mild cognitive impairment of uncertain or unknown etiology; L97.519 Non-pressure chronic ulcer of other part of right foot with unspecified severity; Z20.822 Contact with and (suspected) exposure to COVID-19; Z87.891 Personal history of nicotine dependence; Z95.820 Peripheral vascular angioplasty status with implants and grafts; Z86.16 Personal history of COVID-19; Z68.25 Body mass index [BMI] 25.0-25.9, adult
CPT/HCPCS: 10112

== ENCOUNTER → 2020-12-16 | Outpatient (CLI) | payer OTHER ==
[~2020-12-16] MED LIST changes: +COZAAR 50 MG TA50 MG PO; +LANTUS SUBQ; +LYRICA 50 MG50 MG PO; +TYLENOL325 MG PO; +VITAMIN B-12500 MCG PO; +VITAMIN D3125 MC1 PO
== END ==
LOC: HYPER 14:11
PROVIDERS: ATTEND Emergency Medicine
DX: T87.89 Other complications of amputation stump (principal); E11.622 Type 2 diabetes mellitus with other skin ulcer; L89.513 Pressure ulcer of right ankle, stage 3; L97.311 Non-pressure chronic ulcer of right ankle limited to breakdown of skin; E11.621 Type 2 diabetes mellitus with foot ulcer; L89.890 Pressure ulcer of other site, unstageable; L97.511 Non-pressure chronic ulcer of other part of right foot limited to breakdown of skin; R60.0 Localized edema; E11.610 Type 2 diabetes mellitus with diabetic neuropathic arthropathy; E78.5 Hyperlipidemia, unspecified; K21.9 Gastro-esophageal reflux disease without esophagitis; M12.871 Other specific arthropathies, not elsewhere classified, right ankle and foot; F32.9 Major depressive disorder, single episode, unspecified; Z94.0 Kidney transplant status; Z87.891 Personal history of nicotine dependence; Z89.511 Acquired absence of right leg below knee; Y83.5 Amputation of limb(s) as the cause of abnormal reaction of the patient, or of later complication, without mention of misadventure at the time of the procedure

== ENCOUNTER → 2020-12-23 | Outpatient (CLI) | payer OTHER | LOC: HYPER 13:28 | PROVIDERS: ATTEND Emergency Medicine | DX: T87.89 Other complications of amputation stump (principal); R60.0 Localized edema; E11.610 Type 2 diabetes mellitus with diabetic neuropathic arthropathy; E78.5 Hyperlipidemia, unspecified; K21.9 Gastro-esophageal reflux disease without esophagitis; M19.90 Unspecified osteoarthritis, unspecified site; F32.9 Major depressive disorder, single episode, unspecified; Z94.0 Kidney transplant status; Z87.891 Personal history of nicotine dependence; Y83.5 Amputation of limb(s) as the cause of abnormal reaction of the patient, or of later complication, without mention of misadventure at the time of the procedure ==

== ENCOUNTER → 2020-12-30 | Outpatient (CLI) | payer OTHER | LOC: HYPER 14:15 | PROVIDERS: ATTEND Emergency Medicine | DX: T87.89 Other complications of amputation stump (principal); E11.622 Type 2 diabetes mellitus with other skin ulcer; L97.812 Non-pressure chronic ulcer of other part of right lower leg with fat layer exposed; R60.0 Localized edema; E11.610 Type 2 diabetes mellitus with diabetic neuropathic arthropathy; E78.5 Hyperlipidemia, unspecified; K21.9 Gastro-esophageal reflux disease without esophagitis; M19.90 Unspecified osteoarthritis, unspecified site; F32.9 Major depressive disorder, single episode, unspecified; Z94.0 Kidney transplant status; Z87.891 Personal history of nicotine dependence; Y83.5 Amputation of limb(s) as the cause of abnormal reaction of the patient, or of later complication, without mention of misadventure at the time of the procedure ==

== ENCOUNTER → 2021-02-27 | Outpatient (CLI) | payer OTHER | LOC: HYPER 10:32 | PROVIDERS: ATTEND Emergency Medicine | DX: T87.89 Other complications of amputation stump (principal); E11.622 Type 2 diabetes mellitus with other skin ulcer; L89.892 Pressure ulcer of other site, stage 2; L97.811 Non-pressure chronic ulcer of other part of right lower leg limited to breakdown of skin; S71.111A Laceration without foreign body, right thigh, initial encounter; R60.0 Localized edema; E11.610 Type 2 diabetes mellitus with diabetic neuropathic arthropathy; E78.5 Hyperlipidemia, unspecified; K21.9 Gastro-esophageal reflux disease without esophagitis; M19.90 Unspecified osteoarthritis, unspecified site; F32.9 Major depressive disorder, single episode, unspecified; Z94.0 Kidney transplant status; Z87.891 Personal history of nicotine dependence; Y83.5 Amputation of limb(s) as the cause of abnormal reaction of the patient, or of later complication, without mention of misadventure at the time of the procedure ==

== ENCOUNTER → 2021-03-27 | Outpatient (CLI) | payer OTHER | LOC: HYPER 08:06 | PROVIDERS: ATTEND Emergency Medicine | DX: T87.89 Other complications of amputation stump (principal); E11.622 Type 2 diabetes mellitus with other skin ulcer; L89.892 Pressure ulcer of other site, stage 2; L97.811 Non-pressure chronic ulcer of other part of right lower leg limited to breakdown of skin; R60.0 Localized edema; M19.90 Unspecified osteoarthritis, unspecified site; E78.5 Hyperlipidemia, unspecified; F32.9 Major depressive disorder, single episode, unspecified; Z89.511 Acquired absence of right leg below knee; Z94.0 Kidney transplant status; Z87.891 Personal history of nicotine dependence; Z79.82 Long term (current) use of aspirin; Z79.899 Other long term (current) drug therapy; Y83.8 Other surgical procedures as the cause of abnormal reaction of the patient, or of later complication, without mention of misadventure at the time of the procedure ==